=== PATIENT | female | born 1955 ===

== ENCOUNTER 2017-07-25 12:04 | Emergency (ER) | payer OTHER ==
[~2017-07-25] VITALS: Ht 175.3 cm; Wt 63.5 kg
== END 2017-07-25 15:12 | disposition home or self-care (01) ==
LOC: ER 12:04
DX: S80.01XA Contusion of right knee, initial encounter (principal); W18.39XA Other fall on same level, initial encounter; Y93.89 Activity, other specified; Y92.098 Other place in other non-institutional residence as the place of occurrence of the external cause; Y99.8 Other external cause status; L03.115 Cellulitis of right lower limb